=== PATIENT | female | born 1995 | race American Indian/Alaskan Native ===

== ENCOUNTER 2021-02-19 18:56 | Emergency (ER) | payer MEDICARE, OTHER ==
[2021-02-19 19:55] VITALS: BP 111/78
--- NOTE | 2021-02-19 20:06 | Event Note ---
ED Screening Note ED Screening Note: hx gerd psh breast tumors- non ca rx none no c/e/d pt is wearing gloves because her hands hurt she has not gotten covid immunizations co chest pain radiating up and down her sternum- not her gerd no cough no fever no chills no trauma This initial assessment/diagnostic orders/clinical plan/treatment(s) is/are subject to change based on patients health status, clinical progression and re- assessment by fellow clinical providers in the ED. Further treatment and workup at subsequent clinical providers discretion. Patient/guardian urged not to elope from the ED as their condition may be serious if not clinically assessed and managed. Initial orders include: ekg xray chest ? GI etiology
--- NOTE | 2021-02-19 20:49 | XRay Report ---
CHEST 2 VIEWS INDICATION / CLINICAL INFORMATION: chest pain. COMPARISON: None available. FINDINGS: SUPPORT DEVICES: None. HEART / MEDIASTINUM: No significant abnormality. LUNGS / PLEURA: No significant pulmonary abnormality. No significant pleural effusion. No pneumothora x. ADDITIONAL FINDINGS: No significant additional findings. IMPRESSION: 1. No acute abnormality of the chest. Signer Name: Lobito Del Rosario MD Signed: 02/19/2021 8:44 PM Workstation Name: [id number]
[2021-02-19 21:48] LABS: Basophils % (Auto) 0.6 % (0.0-1.8); Eosinophils # (Auto) 0.1 K/mm3 (0.0-0.4); Hematocrit 37.4 % (30.3-42.9); Hemoglobin 11.7 gm/dl (10.1-14.3); Lymphocytes # (Auto) 3.8 K/mm3 (1.2-5.4); Lymphocytes % (Auto) 49.1 % (13.4-35.0); Mean Corpuscular HGB Conc 31 % (30-34); Mean Corpuscular Volume 75 fl (79-97); Monocytes # (Auto) 0.5 K/mm3 (0.0-0.8); Monocytes % (Auto) 6.5 % (0.0-7.3); Platelet Count 335 K/mm3 (140-440); Red Cell Distribution Width 14.5 % (13.2-15.2)
[2021-02-19 22:08] LABS: Blood Urea Nitrogen 12 mg/dL (7-17); Calcium 9.2 mg/dL (8.4-10.2); Hemolysis Index 4
[2021-02-19 22:11] LABS: BUN/Creatinine Ratio 24
--- NOTE | 2021-02-19 22:26 | Emergency Department Report ---
ED Chest Pain HPI - General Chief Complaint: Chest Pain Stated Complaint: CHEST PAIN Time Seen by Provider: 02/19/21 20:56 Source: patient Mode of arrival: Ambulatory Limitations: No Limitations - History of Present Illness Initial Comments: 25-year-old -Russian female patient with history of GERD presents with complaints of substernal chest pain mainly for the past 2 weeks. Patient states pain mainly occurs with movement and deep inhalation. She rates her pain as a 6/10 in severity and describes it as sharp. No shortness of breath, cough, fever/chills/sweats, leg pain/swelling, history of DVT/PE, hemoptysis, recent long travel, or trauma to the chest wall per patient. Ibuprofen is not helping per patient. No past history of heart disease or family history of heart disease per patient. - Related Data Previous Rx's Medication Instructions Recorded Last Taken Type Naproxen 500 mg PO BID PRN #20 tablet 02/19/21 Unknown Rx methOCARBAMOL [Robaxin TAB] 750 mg PO Q8H PRN #21 tablet 02/19/21 Unknown Rx predniSONE [Deltasone] 20 mg PO BID 3 Days #6 tablet 02/19/21 Unknown Rx Allergies Allergy/AdvReac Type Severity Reaction Status Date / Time No Known Allergies Allergy Unverified 02/19/21 20:00 Heart Score - HEART Score History: Slightly suspicious EKG: Normal Age: < 45 Risk factors: No known risk factors Troponin: < normal limit HEART Score: 0 - EKG Read Time Time EKG Completed: 17:58 EKG Read Time: 20:58 - Critical Actions Critical Actions: 0-3 pts:0.9-1.7%risk of adverse cardiac event.Candidate for discharge ED Review of Systems ROS: Stated complaint: CHEST PAIN Other details as noted in HPI Constitutional: denies: chills, fever Respiratory: denies: cough Cardiovascular: chest pain. denies: palpitations, edema, syncope Gastrointestinal: denies: abdominal pain, vomiting Musculoskeletal: denies: back pain, arthralgia Skin: denies: change in color ED Past Medical Hx - Past Medical History Previous Medical History?: No - Surgical History Past Surgical History?: Yes Additional Surgical History: Bilateral cyst removal from breasts. - Social History Smoking Status: Never Smoker Substance Use Type: None - Medications Home Medications: Home Medications Medication Instructions Recorded Confirmed Last Taken Type Naproxen 500 mg PO BID PRN #20 tablet 02/19/21 Unknown Rx methOCARBAMOL [Robaxin TAB] 750 mg PO Q8H PRN #21 tablet 02/19/21 Unknown Rx predniSONE [Deltasone] 20 mg PO BID 3 Days #6 tablet 02/19/21 Unknown Rx ED Physical Exam - General Limitations: No Limitations General appearance: alert, in no apparent distress - Head Head exam: Present: atraumatic, normocephalic - Eye Eye exam: Present: normal appearance - Neck Neck exam: Present: normal inspection - Respiratory Respiratory exam: Present: normal lung sounds bilaterally, chest wall tenderness (Tenderness to palpation noted bilaterally to parasternal region of chest wit hout obvious deformity or bruise). Absent: respiratory distress - Cardiovascular Cardiovascular Exam: Present: regular rate, normal rhythm. Absent: systolic mu rmur, diastolic murmur, rubs, gallop - Extremities Exam Extremities exam: Present: full ROM. Absent: calf tenderness (No swelling or pain noted to legs bilaterally) - Neurological Exam Neurological exam: Present: alert, oriented X3, normal gait - Psychiatric Psychiatric exam: Present: normal affect, normal mood - Skin Skin exam: Present: warm, dry, intact, normal color. Absent: rash ED Course Vital Signs 02/19/21 19:52 Temperature 98.3 F Pulse Rate 80 Respiratory 16 Rate Blood Pressure 111/78 O2 Sat by Pulse 100 Oximetry ED Medical Decision Making - Lab Data Result diagrams: 02/19/21 21:20 02/19/21 21:20 Lab Results 02/19/21 02/19/21 Range/Units 21:20 21:20 WBC 7.8 (4.5-11.0) K/mm3 RBC 5.00 (3.65-5.03) M/mm3 Hgb 11.7 (10.1-14.3) gm/dl Hct 37.4 (30.3-42.9) % MCV 75 L (79-97) fl MCH 23 L (28-32) pg MCHC 31 (30-34) % RDW 14.5 (13.2-15.2) % Plt Count 335 (140-440) K/mm3 Lymph % (Auto) 49.1 H (13.4-35.0) % Angelina % (Auto) 6.5 (0.0-7.3) % Eos % (Auto) 1.0 (0.0-4.3) % Baso % (Auto) 0.6 (0.0-1.8) % Lymph # (Auto) 3.8 (1.2-5.4) K/mm3 Angelina # (Auto) 0.5 (0.0-0.8) K/mm3 Eos # (Auto) 0.1 (0.0-0.4) K/mm3 Baso # (Auto) 0.0 (0.0-0.1) K/mm3 Seg Neutrophils % 42.8 (40.0-70.0) % Seg Neutrophils # 3.4 (1.8-7.7) K/mm3 Sodium 135 L (137-145) mmol/L Potassium 4.0 (3.6-5.0) mmol/L Chloride 100.0 (98-107) mmol/L Carbon Dioxide 26 (22-30) mmol/L Anion Gap 13 mmol/L BUN 12 (7-17) mg/dL Creatinine 0.5 L (0.6-1.2) mg/dL Estimated GFR > 60 ml/min BUN/Creatinine Ratio 24 % Glucose 79 (65-100) mg/dL Calcium 9.2 (8.4-10.2) mg/dL Troponin T < 0.010 (0.00-0.029) ng/mL - EKG Data EKG shows normal: sinus rhythm Rate: normal - EKG Data Interpretation: normal EKG - Radiology Data Radiology results: report reviewed CHEST 2 VIEWS INDICATION / CLINICAL INFORMATION: chest pain. COMPARISON: None available. FINDINGS: SUPPORT DEVICES: None. HEART / MEDIASTINUM: No significant abnormality. LUNGS / PLEURA: No significant pulmonary abnormality. No significant pleural effusion. No pneumothorax. ADDITIONAL FINDINGS: No significant additional findings. IMPRESSION: 1. No acute abnormality of the chest. - Medical Decision Making 25-year-old -[place] female patient with history of GERD presents with complaints of substernal chest pain mainly for the past 2 weeks. Patient states pain mainly occurs with movement and deep inhalation. She rates her pain as a 6/10 in severity and describes it as sharp. No shortness of breath, cough, fever/chills/sweats, leg pain/swelling, history of DVT/PE, hemoptysis, recent long travel, or trauma to the chest wall per patient. Ibuprofen is not helping per patient. No past history of heart disease or family history of heart disease per patient. Normal lung sounds and heart sounds noted on exam. Heart score = 0. EKG is normal. Chest x-ray is normal. Troponin, CBC, and CMP are normal. Patient has palpable chest pain on exam of the parasternal region. Suspect costochondritis. Will treat with NSAIDs, muscle relaxers, and icing. Her vitals are normal, she is well-appearing, she is stable for discharge home. Recommend follow-up with primary care doctor in 3 days. Strict return precautions were discussed in detail with patient who verbalized understanding peer Critical care attestation.: If time is entered above; I have spent that time in minutes in the direct care of this critically ill patient, excluding procedure time. ED Disposition Clinical Impression: Other chest pain Disposition: DC- TO HOME OR SELFCARE Is pt being admited?: No Condition: Stable Instructions: Costochondritis, Nonspecific Chest Pain, Adult, [id number] Prescriptions: predniSONE [Deltasone] 20 mg PO BID 3 Days #6 tablet Naproxen 500 mg PO BID PRN #20 tablet PRN Reason: pain methOCARBAMOL [Robaxin TAB] 750 mg PO Q8H PRN #21 tablet PRN Reason: Muscle tightness Referrals: [facility] [Provider Group] - 3-5 Days
--- NOTE | 2021-02-20 18:08 | Electrocardiograph Report ---
[facility] Test Date: 2021-02-19 Test Time: 19:58:31 Pat Name: HILARIO KELSEY Department: Room: Gender: F Primer Boxer: LEANA : 1995 Requested By: DELIO GOMEZ Order Number: [id number] Reading MD: Lulú Quezada Measurements Intervals [place] Rate: 70 P: 61 [place]: 181 QRS: 23 QRSD: 101 T: 42 QT: 388 QTc: 420 Interpretive Statements Sinus rhythm No previous ECG available for comparison Electronically Signed On 02-20-2021 18:08:14 EDT by Lulú Quezada
== END 2021-02-19 23:40 | disposition home or self-care (01) ==
LOC: ED 18:56
DX: R07.89 Other chest pain (principal); K21.9 Gastro-esophageal reflux disease without esophagitis; Z98.890 Other specified postprocedural states; Z79.899 Other long term (current) drug therapy
CPT/HCPCS: 36415; 71046; 80048; 84484; 85025; 93005